=== PATIENT | female | born 1980 | race Caucasian/White ===

== ENCOUNTER 2019-02-11 18:56 | Emergency (ER) | payer MEDICARE, MEDICAID ==
[~2019-02-11] VITALS: Ht 170.2 cm; Wt 168.1 kg
[~2019-02-11 18:56] MED LIST: ASPI81TA52 PO; CELE-193 PO; Carvedilol PO; EPIN0.3P8 IM; GABA-530 PO; HYDR12.5 PO; NIT10P TD; NITR0.4T SL; PANT20TA2 PO; TRIA1TAB5 PO
[2019-02-11] MEDS ORDERED: nitroGLYCERIN 0.4mg SUBLingual tab SL PRN (19:15)
[2019-02-11] MEDS ORDERED: famotidine/PF 10 mg/ml inj IV ONE (19:15)
[2019-02-11 19:17] LABS: BASOPHILS # (AUTO) 0.1 X10'3 (0-0.2); BASOPHILS % (AUTO) 0.5 % (0-1); EOSINOPHILS # (AUTO) 0.3 X10'3 (0-0.9); EOSINOPHILS % (AUTO) 2.4 % (0-6); HEMATOCRIT 40.5 % (35.0-45.0); HEMOGLOBIN 13.4 g/dl (12.0-16.0); LYMPHOCYTES # (AUTO) 2.4 X10'3 (1.1-4.8); LYMPHOCYTES % (AUTO) 20.8 % (21-51); MEAN CORPUSCULAR HEMOGLOBIN 26.5 PG (27.0-31.0); MEAN CORPUSCULAR VOLUME 80.1 FL (78-98); MEAN PLATELET VOLUME 8.8 FL (7.4-10.4); MONOCYTES # (AUTO) 0.7 X10'3 (0-0.9); MONOCYTES % (AUTO) 6.1 % (2-12); NEUTROPHILS # (AUTO) 8.1 X10'3 (1.8-7.7); NEUTROPHILS % (AUTO) 70.2 % (42-75); PLATELET COUNT 318 X10'3 (140-440); RED BLOOD COUNT 5.05 X10'6 (4.20-5.60); RED CELL DISTRIBUTION WIDTH 14.6 % (11.5-14.5); WHITE BLOOD COUNT 11.5 X10'3 (4.5-11.0)
[2019-02-11 19:30] LABS: ALANINE AMINOTRANSFERASE 33 U/L (12-78); ALBUMIN 3.3 G/DL (3.4-5.0); ALBUMIN/GLOBULIN RATIO 0.9 (1.1-1.5); ALKALINE PHOSPHATASE 85 IU/L (46-116); ANION GAP 9 (8-16); ASPARTATE AMINO TRANSFERASE 20 U/L (10-37); BILIRUBIN,TOTAL 0.6 MG/DL (0.1-1.0); BLOOD UREA NITROGEN 15 MG/DL (7-18); BUN/CREATININE RATIO 17.2 (6.6-38.0); CALCIUM 8.8 MG/DL (8.5-10.1); CHLORIDE 106 MMOL/L (99-107); CREATININE 0.87 MG/DL (0.40-0.90); GLUCOSE 127 MG/DL (70-104); POTASSIUM 3.8 MMOL/L (3.5-5.1); SODIUM 140 MMOL/L (135-145); TOTAL CARBON DIOXIDE 25.3 MMOL/L (24-32); TOTAL PROTEIN 6.9 G/DL (6.4-8.2); eGFR 72 ML/MIN
[2019-02-11 19:43] LABS: D-DIMER 0.57 MG/L FEU (0-0.50); PARTIAL THROMBOPLASTIN TIME 26 SECONDS (22-32)
[2019-02-11] MEDS ORDERED: cloNIDine 0.1 mg tablet PO ONE (19:50)
[2019-02-11] MEDS ORDERED: morphine 4 MG/ML inj SYRINge IV ONE (20:00)
[2019-02-11] MEDS ORDERED: ondansetron/PF 4mg/2ml inj IV ONE (20:00)
[2019-02-11] MEDS ORDERED: iohexol 350MG/ML 100ml bottle IV ONE (20:06)
[2019-02-11] MEDS ORDERED: LORazepam 2 mg/ml vial IV ONE (21:35)
--- NOTE | 2019-02-11 21:44 | NUR ---
pt had been ordered ativan 1 mg iv prior to dc, anali hale rn talking with benjie brooks and provider decided to dc this med. pt to be dc'd
[2019-02-11 21:47] VITALS: BP 142/89
== END 2019-02-11 21:48 | disposition home or self-care (01) ==
LOC: ER 18:58
DX: R07.89 Other chest pain (principal); E66.01 Morbid (severe) obesity due to excess calories; I48.91 Unspecified atrial fibrillation; I25.10 Atherosclerotic heart disease of native coronary artery without angina pectoris; I10 Essential (primary) hypertension; I25.2 Old myocardial infarction; G89.29 Other chronic pain; Z86.73 Personal history of transient ischemic attack (TIA), and cerebral infarction without residual deficits; Z90.710 Acquired absence of both cervix and uterus; Z98.890 Other specified postprocedural states; Z88.8 Allergy status to other drugs, medicaments and biological substances; Z79.82 Long term (current) use of aspirin; Z79.899 Other long term (current) drug therapy
CPT/HCPCS: 36415; 71045; 71275; 80053; 83880; 84484; 85025; 85379; 85610; 85730; 93005; 96374; 96375; 99284; J2060; J2270; J2405; J3490; Q9967

== ENCOUNTER 2019-06-25 08:56 | Emergency (ER) | payer MEDICARE, MEDICAID ==
[~2019-06-25] VITALS: Ht 170.2 cm; Wt 172.5 kg
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
[2019-06-25 09:40] VITALS: BP 155/104
[2019-06-25] MEDS ORDERED: orphenadrine citrate 60mg/2ml inj. IM ONE (10:20)
[2019-06-25] MEDS ORDERED: ketorolac tromethamine 15mg/ml inj. IM ONE (10:20)
[2019-06-25] MEDS ORDERED: METH-360 PO (10:25)
== END 2019-06-25 11:25 | disposition home or self-care (01) ==
LOC: ER 08:57
DX: S16.1XXA Strain of muscle, fascia and tendon at neck level, initial encounter (principal); I48.91 Unspecified atrial fibrillation; I25.10 Atherosclerotic heart disease of native coronary artery without angina pectoris; I10 Essential (primary) hypertension; I25.2 Old myocardial infarction; G89.29 Other chronic pain; Z90.710 Acquired absence of both cervix and uterus; Z98.890 Other specified postprocedural states; Z88.0 Allergy status to penicillin; Z88.6 Allergy status to analgesic agent; Z88.8 Allergy status to other drugs, medicaments and biological substances; Z79.82 Long term (current) use of aspirin; Z79.899 Other long term (current) drug therapy; V49.49XA Driver injured in collision with other motor vehicles in traffic accident, initial encounter; Y93.89 Activity, other specified; Y92.488 Other paved roadways as the place of occurrence of the external cause; Y99.8 Other external cause status
CPT/HCPCS: 72040; 96372; 99283; J1885; J2360

== ENCOUNTER 2019-11-04 17:15 | Emergency (ER) | payer MEDICARE, MEDICAID ==
[~2019-11-04] VITALS: Ht 170.2 cm; Wt 177.3 kg
[~2019-11-04 17:15] MED LIST changes: +METH-360 PO; -NIT10P TD; +NITR1PAT68 TD
[2019-11-04 17:42] VITALS: BP 138/106
== END 2019-11-04 19:21 | disposition home or self-care (01) ==
LOC: ER 17:16
DX: S63.502A Unspecified sprain of left wrist, initial encounter (principal); I48.91 Unspecified atrial fibrillation; I25.10 Atherosclerotic heart disease of native coronary artery without angina pectoris; I10 Essential (primary) hypertension; I25.2 Old myocardial infarction; G89.29 Other chronic pain; Z98.890 Other specified postprocedural states; Z90.710 Acquired absence of both cervix and uterus; Z88.8 Allergy status to other drugs, medicaments and biological substances; Z86.73 Personal history of transient ischemic attack (TIA), and cerebral infarction without residual deficits; Z88.0 Allergy status to penicillin; Z88.6 Allergy status to analgesic agent; Z79.82 Long term (current) use of aspirin; Z79.899 Other long term (current) drug therapy; W07.XXXA Fall from chair, initial encounter; Y93.89 Activity, other specified; Y92.89 Other specified places as the place of occurrence of the external cause; Y99.9 Unspecified external cause status
CPT/HCPCS: 29280; 73090; 73200; 99284

== ENCOUNTER 2020-02-03 18:42 | Emergency (ER) | payer MEDICAID, MEDICARE ==
[~2020-02-03] VITALS: Ht 170.2 cm; Wt 178.0 kg
[2020-02-03] MEDS ORDERED: dexamethasone sod phosphate 10mg/ml inj IM STA (19:31)
[2020-02-03 20:34] VITALS: BP 142/56
== END 2020-02-03 20:30 | disposition home or self-care (01) ==
LOC: ER 18:43
DX: H93.13 Tinnitus, bilateral (principal); R59.1 Generalized enlarged lymph nodes; I48.91 Unspecified atrial fibrillation; I25.10 Atherosclerotic heart disease of native coronary artery without angina pectoris; I10 Essential (primary) hypertension; I25.2 Old myocardial infarction; G89.29 Other chronic pain; Z86.73 Personal history of transient ischemic attack (TIA), and cerebral infarction without residual deficits; Z90.710 Acquired absence of both cervix and uterus; Z90.89 Acquired absence of other organs; Z98.890 Other specified postprocedural states; Z88.0 Allergy status to penicillin; Z88.8 Allergy status to other drugs, medicaments and biological substances; Z79.82 Long term (current) use of aspirin; Z79.899 Other long term (current) drug therapy
CPT/HCPCS: 96372; 99283; J1100

== ENCOUNTER 2020-02-09 14:46 | Emergency (ER) | payer MEDICARE ==
[~2020-02-09] VITALS: Ht 170.2 cm; Wt 182.8 kg
--- NOTE | 2020-02-09 16:11 | NUR ---
pt has had ear pain x 12 day was seen here and at the clinic her dr ordaz told her if is does not get better to go to the er it has not gotten better so she is here her office is wanting her to get a mri r/t the ongoing pain
[2020-02-09] MEDS ORDERED: HYDROcodone/acetaminophen 5mg/325mg tablet PO ONE (16:40)
[2020-02-09 17:14] LABS: BASOPHILS # (AUTO) 0.1 X10'3 (0-0.2); BASOPHILS % (AUTO) 1.3 % (0-1); EOSINOPHILS # (AUTO) 0.4 X10'3 (0-0.9); EOSINOPHILS % (AUTO) 4.4 % (0-6); HEMATOCRIT 41.8 % (35.0-45.0); HEMOGLOBIN 13.5 g/dl (12.0-16.0); LYMPHOCYTES # (AUTO) 1.7 X10'3 (1.1-4.8); LYMPHOCYTES % (AUTO) 20.8 % (21-51); MEAN CORPUSCULAR HEMOGLOBIN 26.6 PG (27.0-31.0); MEAN CORPUSCULAR HGB CONC 32.4 g/dL (33.0-36.5); MEAN CORPUSCULAR VOLUME 82.2 FL (78-98); MEAN PLATELET VOLUME 8.7 FL (7.4-10.4); MONOCYTES # (AUTO) 0.5 X10'3 (0-0.9); NEUTROPHILS # (AUTO) 5.5 X10'3 (1.8-7.7); NEUTROPHILS % (AUTO) 67.5 % (42-75); PLATELET COUNT 315 X10'3 (140-440); RED BLOOD COUNT 5.09 X10'6 (4.20-5.60); RED CELL DISTRIBUTION WIDTH 15.1 % (11.5-14.5); WHITE BLOOD COUNT 8.2 X10'3 (4.5-11.0)
[2020-02-09] MEDS ORDERED: iohexol 300mg/ml 100ml inj. ONE (17:25)
[2020-02-09 17:26] LABS: ALANINE AMINOTRANSFERASE 43 U/L (12-78); ALBUMIN 3.3 G/DL (3.4-5.0); ALBUMIN/GLOBULIN RATIO 0.9 (1.1-1.5); ALKALINE PHOSPHATASE 77 IU/L (46-116); ANION GAP 3 (8-16); ASPARTATE AMINO TRANSFERASE 19 U/L (10-37); BILIRUBIN,TOTAL 0.6 MG/DL (0.1-1.0); BLOOD UREA NITROGEN 14 MG/DL (7-18); BUN/CREATININE RATIO 15.7 (6.6-38.0); CALCIUM 8.6 MG/DL (8.5-10.1); CHLORIDE 106 MMOL/L (99-107); CREATININE 0.89 MG/DL (0.40-0.90); GLUCOSE 96 MG/DL (70-104); POTASSIUM 3.8 MMOL/L (3.5-5.1); SODIUM 140 MMOL/L (135-145); TOTAL CARBON DIOXIDE 31.5 MMOL/L (24-32); TOTAL PROTEIN 6.8 G/DL (6.4-8.2); eGFR 70 ML/MIN
[2020-02-09] MEDS ORDERED: carBAMazepine Ext. Release 200 MG TAB.ER.12H PO STA (18:36)
[2020-02-09 19:38] VITALS: BP 171/98
== END 2020-02-09 19:41 | disposition home or self-care (01) ==
LOC: ER 14:47
DX: H93.11 Tinnitus, right ear (principal); H93.8X1 Other specified disorders of right ear; I48.91 Unspecified atrial fibrillation; I25.10 Atherosclerotic heart disease of native coronary artery without angina pectoris; I10 Essential (primary) hypertension; I25.2 Old myocardial infarction; G89.29 Other chronic pain; Z90.710 Acquired absence of both cervix and uterus; Z98.890 Other specified postprocedural states; Z86.73 Personal history of transient ischemic attack (TIA), and cerebral infarction without residual deficits; Z88.8 Allergy status to other drugs, medicaments and biological substances; Z79.82 Long term (current) use of aspirin; Z79.899 Other long term (current) drug therapy; Z88.0 Allergy status to penicillin
CPT/HCPCS: 36415; 70482; 80053; 84145; 85025; 99285; Q9967

== ENCOUNTER 2020-03-28 15:26 | Emergency (ER) | payer MEDICARE ==
[~2020-03-28] VITALS: Ht 170.2 cm; Wt 178.5 kg
[2020-03-28 15:30] VITALS: BP 159/111
[2020-03-28] MEDS ORDERED: TETRACAINE 0.5% 4 ML OPHTHALMIC DROPS LEFTEYE ONE (15:50)
[2020-03-28] MEDS ORDERED: proparacaine 0.5% ophthalmic drops 15ml LEFTEYE ONE ×3 (15:55)
[2020-03-28] MEDS ORDERED: CIPR2.5D18 RIGHTEYE (16:41)
[2020-03-28] MEDS ORDERED: HYDR-4383 PO (16:41)
--- NOTE | 2020-03-28 17:15 | NUR ---
IRRIGATED RT EYE WITH 200ML OF NS, PT CESIA WELL, UNABLE TO VISUALIZE CONTACT LENSE, PT SAID SHE FEELS IT IN THERE, Alber DODGE AWARE AND WILL EVALUATE PT
== END 2020-03-28 18:54 | disposition home or self-care (01) ==
LOC: ER 15:27
DX: H10.31 Unspecified acute conjunctivitis, right eye (principal); I48.91 Unspecified atrial fibrillation; I25.10 Atherosclerotic heart disease of native coronary artery without angina pectoris; I10 Essential (primary) hypertension; I25.2 Old myocardial infarction; G89.29 Other chronic pain; Z90.89 Acquired absence of other organs; Z90.710 Acquired absence of both cervix and uterus; Z98.890 Other specified postprocedural states; Z88.0 Allergy status to penicillin; Z88.8 Allergy status to other drugs, medicaments and biological substances; Z79.82 Long term (current) use of aspirin; Z79.899 Other long term (current) drug therapy
CPT/HCPCS: 99283

== ENCOUNTER 2022-04-18 13:46 | Emergency (ER) | payer MEDICARE, MEDICAID ==
[~2022-04-18] VITALS: Ht 170.2 cm; Wt 165.4 kg
[~2022-04-18 13:46] MED LIST changes: +HYDR-4383 PO
[2022-04-18 14:39] LABS: BASOPHILS % (AUTO) 0.5 % (0-1); EOSINOPHILS # (AUTO) 0.4 X10'3 (0-0.9); EOSINOPHILS % (AUTO) 4.3 % (0-6); HEMATOCRIT 45.1 % (35.0-45.0); HEMOGLOBIN 14.6 g/dl (12.0-16.0); LYMPHOCYTES # (AUTO) 1.9 X10'3 (1.1-4.8); LYMPHOCYTES % (AUTO) 20.5 % (21-51); MEAN CORPUSCULAR HEMOGLOBIN 26.1 PG (27.0-31.0); MEAN CORPUSCULAR HGB CONC 32.4 g/dL (33.0-36.5); MEAN CORPUSCULAR VOLUME 80.7 FL (78-98); MEAN PLATELET VOLUME 8.6 FL (7.4-10.4); MONOCYTES # (AUTO) 0.6 X10'3 (0-0.9); NEUTROPHILS # (AUTO) 6.4 X10'3 (1.8-7.7); NEUTROPHILS % (AUTO) 68.7 % (42-75); PLATELET COUNT 352 X10'3 (140-440); RED BLOOD COUNT 5.59 X10'6 (4.20-5.60); RED CELL DISTRIBUTION WIDTH 15.1 % (11.5-14.5); WHITE BLOOD COUNT 9.4 X10'3 (4.5-11.0)
[2022-04-18 14:52] LABS: ALANINE AMINOTRANSFERASE 42 U/L (12-78); ALBUMIN/GLOBULIN RATIO 1.2 (1.1-1.5); ALKALINE PHOSPHATASE 69 IU/L (46-116); ANION GAP 9 (8-16); ASPARTATE AMINO TRANSFERASE 21 U/L (10-37); BILIRUBIN,TOTAL 0.6 MG/DL (0.1-1.0); BLOOD UREA NITROGEN 13 MG/DL (7-18); BUN/CREATININE RATIO 15.7 (6.6-38.0); CALCIUM 9.4 MG/DL (8.5-10.1); CHLORIDE 105 MMOL/L (99-107); CREATININE 0.83 MG/DL (0.40-0.90); GLUCOSE 96 MG/DL (70-104); POTASSIUM 3.6 MMOL/L (3.5-5.1); SODIUM 143 MMOL/L (135-145); TOTAL CARBON DIOXIDE 29.2 MMOL/L (24-32); TOTAL PROTEIN 7.4 G/DL (6.4-8.2); eGFR 75 ML/MIN
[2022-04-18] MEDS ORDERED: ketorolac trometh. 30mg/ml inj. IM ONE (16:15)
[2022-04-18] MEDS ORDERED: cloNIDine 0.1 mg tablet PO ONE (16:15)
--- NOTE | 2022-04-18 16:34 | NUR ---
To CT via gurney by [employer].
[2022-04-18 17:46] VITALS: BP 126/77
[2022-04-18 17:58] LABS: D-DIMER 0.33 MG/L FEU (0-0.50)
--- NOTE | 2022-04-18 17:58 | NUR ---
Pt given and understands d/c instructions. Ambulatory with a steady gait.
== END 2022-04-18 17:55 | disposition home or self-care (01) ==
LOC: ER 13:46
DX: R07.89 Other chest pain (principal); R51.9 Headache, unspecified; R06.02 Shortness of breath; R42 Dizziness and giddiness; I48.91 Unspecified atrial fibrillation; I25.10 Atherosclerotic heart disease of native coronary artery without angina pectoris; I10 Essential (primary) hypertension; I25.2 Old myocardial infarction; G89.29 Other chronic pain; Z87.410 Personal history of cervical dysplasia; Z86.73 Personal history of transient ischemic attack (TIA), and cerebral infarction without residual deficits; Z88.8 Allergy status to other drugs, medicaments and biological substances; Z88.0 Allergy status to penicillin; Z79.82 Long term (current) use of aspirin; Z79.899 Other long term (current) drug therapy
CPT/HCPCS: 36415; 70450; 71045; 80053; 83880; 84484; 85025; 85379; 93005; 96372; 99285; J1885

== ENCOUNTER 2022-05-03 12:04 | Day surgery (SDC) | payer MEDICARE, MEDICAID ==
[2022-04-29 12:28] LABS: BASOPHILS % (AUTO) 0.6 % (0-1); EOSINOPHILS # (AUTO) 0.3 X10'3 (0-0.9); EOSINOPHILS % (AUTO) 4.3 % (0-6); HEMOGLOBIN 14.3 g/dl (12.0-16.0); LYMPHOCYTES # (AUTO) 1.5 X10'3 (1.1-4.8); LYMPHOCYTES % (AUTO) 20.1 % (21-51); MEAN CORPUSCULAR HEMOGLOBIN 26.7 PG (27.0-31.0); MEAN CORPUSCULAR HGB CONC 33.2 g/dL (33.0-36.5); MEAN CORPUSCULAR VOLUME 80.3 FL (78-98); MEAN PLATELET VOLUME 8.6 FL (7.4-10.4); MONOCYTES # (AUTO) 0.5 X10'3 (0-0.9); MONOCYTES % (AUTO) 6.1 % (2-12); NEUTROPHILS # (AUTO) 5.2 X10'3 (1.8-7.7); NEUTROPHILS % (AUTO) 68.9 % (42-75); PLATELET COUNT 339 X10'3 (140-440); RED BLOOD COUNT 5.36 X10'6 (4.20-5.60); RED CELL DISTRIBUTION WIDTH 15.2 % (11.5-14.5); WHITE BLOOD COUNT 7.6 X10'3 (4.5-11.0)
[2022-04-29 12:41] LABS: APTT 25 SECONDS (22-32)
[2022-04-29 12:46] LABS: ALBUMIN 3.9 G/DL (3.4-5.0); ANION GAP 10 (8-16); BLOOD UREA NITROGEN 15 MG/DL (7-18); CALCIUM 9.1 MG/DL (8.5-10.1); CHLORIDE 106 MMOL/L (99-107); CHOL/HDL RATIO 3.9 (0.00-4.99); CHOLESTEROL 187 MG/DL (0-200); CREATININE 0.88 MG/DL (0.40-0.90); GLUCOSE 105 MG/DL (70-104); HDL CHOLESTEROL 48 MG/DL (35-60); LDL CHOLESTEROL 113 MG/DL (50-100); POTASSIUM 3.8 MMOL/L (3.5-5.1); SODIUM 145 MMOL/L (135-145); TOTAL CARBON DIOXIDE 29.2 MMOL/L (24-32); TRIGLYCERIDES 129 MG/DL (20-135); eGFR 70 ML/MIN
[~2022-05-03] VITALS: Ht 170.2 cm; Wt 163.9 kg
[2022-05-03] VITALS (8 sets, daily range): BP systolic 144–176; BP diastolic 56–117
[2022-05-03] MEDS ORDERED: normal saline 1,000 ML IV SCH (12:25)
[2022-05-03] MEDS ORDERED: diphenhydrAMINE 25mg capsule PO PRN (12:25)
[2022-05-03] MEDS ORDERED: LORazepam 0.5 MG tablet PO PRN (12:25)
[2022-05-03] MEDS ORDERED: AMLO-708 PO (13:06)
[2022-05-03] MEDS ORDERED: ALLEVE PO (13:06)
[2022-05-03] MEDS ORDERED: LAMO200T10 PO (13:06)
[2022-05-03] MEDS ORDERED: verapamil 2.5 mg/ml inj IV ONE (14:54)
[2022-05-03] MEDS ORDERED: midazolam 1 mg/ML 2ml injection ONE ×2 (14:55→15:54)
[2022-05-03] MEDS ORDERED: nitroGLYCERIN-Tridil 50MG/D5W 250 ML IV ONE (14:55)
[2022-05-03] MEDS ORDERED: fentaNYL/PF 50MCG/1 ML 2ML syringe ONE ×2 (14:55→15:54)
[2022-05-03] MEDS ORDERED: iohexol 350MG/ML 100ml bottle IV ONE ×2 (14:55→16:05)
[2022-05-03] MEDS ORDERED: heparin 1,000unit/ml 10ml vial 10 ML ONE (14:55)
[2022-05-03] MEDS ORDERED: LIDOcaine 1%/PF 5ML 10 MG/ML VIAL ONE (14:56)
--- NOTE | 2022-05-03 16:47 | NUR ---
Patient returned to room s/p heart cath. Bedside report received from SRI Holland. Vital signs stable. Vasc band in place to right radial. Pulse/sensation intact.
[2022-05-03] MEDS ORDERED: HYDROcodone/acetaminophen 10/325mg tab PO PRN (17:05)
[2022-05-03] MEDS ORDERED: HYDROcodone/acetaminophen 5mg/325mg tablet PO PRN (17:05)
== END 2022-05-03 18:35 | disposition home or self-care (01) ==
LOC: SSTAY O 12:04
PROVIDERS: ATTEND Student in an Organized Health Care Education/Training Program
DX: R07.9 Chest pain, unspecified (principal); I10 Essential (primary) hypertension; G47.33 Obstructive sleep apnea (adult) (pediatric); I25.2 Old myocardial infarction; M19.90 Unspecified osteoarthritis, unspecified site; G43.909 Migraine, unspecified, not intractable, without status migrainosus; Z88.0 Allergy status to penicillin; Z88.8 Allergy status to other drugs, medicaments and biological substances; Z79.899 Other long term (current) drug therapy; Z98.890 Other specified postprocedural states
CPT/HCPCS: 36415; 80048; 80061; 85025; 85610; 85730; 93005; 93458; 93567; 99152; 99153; A6258; C1769; C1894; J1644; J2250; J3010; J3490; J7030; Q0163; Q9967; A4620; A5120; A6402

== ENCOUNTER 2022-07-05 05:45 | Day surgery (SDC) | payer MEDICARE, MEDICAID ==
[2022-06-29 16:17] LABS: BASOPHILS # (AUTO) 0.1 X10'3 (0-0.2); BASOPHILS % (AUTO) 0.9 % (0-1); EOSINOPHILS # (AUTO) 0.3 X10'3 (0-0.9); EOSINOPHILS % (AUTO) 3.9 % (0-6); LYMPHOCYTES # (AUTO) 1.7 X10'3 (1.1-4.8); LYMPHOCYTES % (AUTO) 20.9 % (21-51); MEAN CORPUSCULAR HEMOGLOBIN 26.8 PG (27.0-31.0); MEAN CORPUSCULAR HGB CONC 32.5 g/dL (33.0-36.5); MEAN CORPUSCULAR VOLUME 82.3 FL (78-98); MEAN PLATELET VOLUME 8.9 FL (7.4-10.4); MONOCYTES # (AUTO) 0.5 X10'3 (0-0.9); NEUTROPHILS # (AUTO) 5.6 X10'3 (1.8-7.7); NEUTROPHILS % (AUTO) 68.3 % (42-75); PRE OP HEMATOCRIT 43.3 % (35.0-45.0); PRE OP HEMOGLOBIN 14.1 g/dL (12.0-16.0); PRE OP PLATELET COUNT 362 X10'3 (140-440); RED BLOOD COUNT 5.26 X10'6 (4.20-5.60); RED CELL DISTRIBUTION WIDTH 14.1 % (11.5-14.5)
[2022-06-29 16:25] LABS: ALBUMIN 3.8 G/DL (3.4-5.0); ALBUMIN/GLOBULIN RATIO 1.2 (1.1-1.5); ALKALINE PHOSPHATASE 74 IU/L (46-116); BLOOD UREA NITROGEN 15 MG/DL (7-18); BUN/CREATININE RATIO 16.7 (6.6-38.0); CALCIUM 9.2 MG/DL (8.5-10.1); CHLORIDE 105 MMOL/L (99-107); PRE OP ALT 30 U/L (30-65); PRE OP ANION GAP 8 (8-16); PRE OP AST 13 U/L (10-37); PRE OP BILIRUB, TOTAL 0.4 MG/DL (0.0-1.0); PRE OP GLUCOSE 104 MG/DL (70-104); PRE OP POTASSIUM 3.6 MMOL/L (3.4-5.1); PRE OP SODIUM 142 MMOL/L (135-145); TOTAL CARBON DIOXIDE 29.4 MMOL/L (24-32); TOTAL PROTEIN 7.1 G/DL (6.4-8.2); eGFR 68 ML/MIN
[~2022-07-05] VITALS: Ht 170.2 cm; Wt 161.4 kg
[2022-07-05] VITALS (28 sets, daily range): BP systolic 133–170; BP diastolic 75–98
[~2022-07-05 05:45] MED LIST changes: +AMLO-708 PO; +ASPI-147 PO; -ASPI81TA52 PO; +CALC-336 PO; -CELE-193 PO; -Carvedilol PO; -EPIN0.3P8 IM; -GABA-530 PO; -HYDR-4383 PO; -HYDR12.5 PO; +LAMO200T2 PO; +MAGN400C PO; -METH-360 PO; +NAPR220T67 PO; -NITR0.4T SL; -NITR1PAT68 TD; -PANT20TA2 PO; +famotidine 20mg tablet PO ONE; +ringers solution, lacted 1,000 ML IV SCH
[2022-07-05] MEDS ORDERED: gabapentin 300mg capsule PO ONE (06:20)
[2022-07-05] MEDS ORDERED: celeCOXIB 100mg capsule PO ONE (06:20)
[2022-07-05] MEDS ORDERED: vancomycin inj 1,750 MG in normal saline 500ml IV soln 350 ML IV ONE ×5 (06:20→18:30)
[2022-07-05] MEDS ORDERED: oxyCODONE SR 10mg (sust. release) tab PO ONE (06:20)
[2022-07-05] MEDS ORDERED: ceFAZolin inj. 3,000 MG in normal saline 100ml IV soln 100 ML IV ONE (06:20)
[2022-07-05] MEDS ORDERED: metoclopramide 5 mg/ml inj IV ONE (06:20)
[2022-07-05] MEDS ORDERED: acetaminophen 1,000mg/100ml IV 100 ML IV ONE (06:20)
[2022-07-05] MEDS ORDERED: acetaminophen 325mg tablet PO PRN (06:30)
[2022-07-05] MEDS ORDERED: potassium cl 20mEq in 1/2 NS 1,000 ML IV SCH (06:30)
[2022-07-05] MEDS ORDERED: ondansetron/PF 4mg/2ml inj IV PRN ×2 (06:30→08:05)
[2022-07-05] MEDS ORDERED: HYDROmorphone inj. 0.5 MG/0.5 ML DISP.SYRIN IV PRN (06:30)
[2022-07-05] MEDS ORDERED: HYDROcodone/acetaminophen 10/325mg tab PO PRN (06:30)
[2022-07-05] MEDS ORDERED: bisacodyl 10mg suppository rectal RC PRN (06:30)
[2022-07-05] MEDS ORDERED: diphenhydrAMINE 25mg capsule PO PRN ×2 (06:30)
[2022-07-05] MEDS ORDERED: magnesium hydroxide 30ml (MOM) UD suspension PO PRN (06:30)
[2022-07-05] MEDS ORDERED: naloxone 0.4 mg/ml inj IV PRN (06:30)
[2022-07-05] MEDS ORDERED: ketorolac trometh. 30mg/ml inj. ONE (06:53)
[2022-07-05] MEDS ORDERED: epiNEPHrine 1 mg/ml inj ONE (06:53)
[2022-07-05] MEDS ORDERED: vancomycin 1,000mg inj ONE (06:53)
[2022-07-05] MEDS ORDERED: cloNIDine hcl/PF 100mcg/ml inj ONE (06:53)
[2022-07-05] MEDS ORDERED: ROPIVAcaine 0.5% (5mg/ml) 30ml vial ONE ×2 (06:53→06:54)
[2022-07-05] MEDS ORDERED: MIDAZolam 1 MG/ML 5ML VIAL ONE (07:19)
[2022-07-05] MEDS ORDERED: fentaNYL/PF 50MCG/1 ML 2ML syringe ONE ×2 (07:19→07:51)
[2022-07-05] MEDS ORDERED: sevoflurane 250ml liquid IH ONE (07:25)
[2022-07-05] MEDS ORDERED: acetaminophen 1000 MG/100ml vial IV ONE (07:25)
[2022-07-05] MEDS ORDERED: diphenhydrAMINE 50 mg/ml inj ONE (07:25)
[2022-07-05] MEDS ORDERED: LAMOTRIGINE PO SCH (08:00)
[2022-07-05] MEDS ORDERED: non-formulary drug (Amlodipine Besylate 1 TAB) PO SCH (08:00)
[2022-07-05] MEDS ORDERED: gabapentin 300mg capsule PO SCH (08:00)
[2022-07-05] MEDS ORDERED: multivitamins, therapeutics tablet PO SCH (08:00)
[2022-07-05] MEDS ORDERED: ceFAZolin/D5W- 1GM premix 50 ML IV SCH ×2 (08:00→16:00)
[2022-07-05] MEDS ORDERED: non-formulary drug (Magnesium Oxide (Magnesium) 1 CAP) PO SCH (08:00)
[2022-07-05] MEDS ORDERED: ascorbic acid 500mg tablet PO SCH (08:00)
[2022-07-05] MEDS ORDERED: ringers solution, lacted 1,000 ML IV SCH (08:05)
[2022-07-05] MEDS ORDERED: morphine 2 MG/ML inj. syringe IV PRN (08:05)
[2022-07-05] MEDS ORDERED: ROPIVAcaine 0.2% (10 MG/5 ML) BOLUS INJECTION ADDCANAL PRN (08:05)
[2022-07-05] MEDS ORDERED: meperidine/PF 25mg/ml syringe IV PRN ×3 (08:05)
[2022-07-05] MEDS ORDERED: proCHLORperazine 10 MG/2 ml inj IV PRN (08:05)
[2022-07-05] MEDS ORDERED: tranexamic acid inj. 1,000 MG in normal saline 100ml IV soln 90 ML IV ONE (08:10)
[2022-07-05] MEDS ORDERED: aspirin 325mg tablet PO SCH (08:30)
[2022-07-05] MEDS ORDERED: propofol inj 20 ML IV ONE (08:53)
--- NOTE | 2022-07-05 09:22 | NUR ---
Received from OR via BED, accompanied by Anesthesiologist and report given by JERMAIN Anesthesiologist. PATIENT WAKING UP, DENIES PAIN, V/S WNL, SCD ON, 20G TO RIGHT WRIST, NEIDA DRESSING to RIGHT KNEE C/D/I with POWDER PACK. ON-Q CATHETER NOTED WITH C/D/I AND WILL START ROPIVACAINE DRIP AT 2 CC/HR. Addendum: 07/05/22 at 0954 by Chepe Price RN Amended: Links added.
[2022-07-05] MEDS ORDERED: ROPIVAcaine 0.2%/PF PUMP/bolus 545 ML POPLITEAL SCH (09:40)
[2022-07-05] MEDS ORDERED: dexamethasone sod phosphate 4mg/ml inj. ONE (10:06)
[2022-07-05] MEDS ORDERED: meperidine/PF 25mg/ml syringe ONE (10:06)
[2022-07-05] MEDS ORDERED: ondansetron/PF 4mg/2ml inj ONE (10:06)
[2022-07-05] MEDS: morphine 4 MG/ML inj SYRINge IV PRN ×2 (10:09→11:31)
--- NOTE | 2022-07-05 12:01 | NUR ---
received report from SRI Mo. awaiting patient arrival.
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
[2022-07-05] MEDS: potassium cl 20mEq in 1/2 NS 1,000 ML IV SCH ×2 (12:22→15:00)
[2022-07-05] MEDS ORDERED: tranexamic acid inj. 1,600 MG in normal saline 100ml IV soln 84 ML IV ONE (12:30)
[2022-07-05] MEDS: HYDROmorphone 1 mg/ml syringe IV PRN ×3 (13:44→22:49)
--- NOTE | 2022-07-05 13:45 | NUR ---
patient woke up in pain. increased BP. SBP down to 133 after dilaudid was given.
[2022-07-05] MEDS: ROPIVAcaine 0.2%/PF PUMP/bolus 545 ML ADDCANAL SCH (14:33)
[2022-07-05] MEDS ORDERED: cefazolin/dext.iso 2gm/100ml 100 ML IV SCH (16:00)
[2022-07-05] MEDS: HYDROcodone/acetaminophen 10/325mg tab PO PRN ×2 (16:22→20:50)
[2022-07-05] MEDS: ceFAZolin inj. 3,000 MG in normal saline 100ml IV soln 100 ML IV SCH (16:33)
[2022-07-05] MEDS ORDERED: triamterene/HCTZ 37.5/25mg tablet PO ONE (17:05)
--- NOTE | 2022-07-05 18:20 | NUR ---
Problems reprioritized. Patient report given, questions answered & plan of care reviewed with SRI Rousseau.
[2022-07-05] MEDS: ascorbic acid 500mg tablet PO SCH (20:49)
[2022-07-05] MEDS: sennosides 8.6mg tablet PO SCH (20:49)
[2022-07-05] MEDS: gabapentin 300mg capsule PO SCH (20:49)
[2022-07-05] MEDS ORDERED: sennosides 8.6mg tablet PO SCH (21:00)
[2022-07-06] MEDS: ceFAZolin inj. 3,000 MG in normal saline 100ml IV soln 100 ML IV SCH (00:51)
[2022-07-06] MEDS: HYDROcodone/acetaminophen 10/325mg tab PO PRN ×5 (00:57→22:36)
[2022-07-06] MEDS: potassium cl 20mEq in 1/2 NS 1,000 ML IV SCH ×4 (01:11→23:00)
[2022-07-06 02:00] VITALS: BP 140/85
[2022-07-06] MEDS: HYDROmorphone 1 mg/ml syringe IV PRN ×4 (04:34→19:43)
[2022-07-06 06:20] LABS: BASOPHILS # (AUTO) 0.1 X10'3 (0-0.2); BASOPHILS % (AUTO) 0.5 % (0-1); EOSINOPHILS % (AUTO) 0.1 % (0-6); HEMATOCRIT 37.4 % (35.0-45.0); HEMOGLOBIN 12.2 g/dl (12.0-16.0); LYMPHOCYTES # (AUTO) 1.4 X10'3 (1.1-4.8); LYMPHOCYTES % (AUTO) 9.9 % (21-51); MEAN CORPUSCULAR HEMOGLOBIN 26.8 PG (27.0-31.0); MEAN CORPUSCULAR HGB CONC 32.6 g/dL (33.0-36.5); MEAN CORPUSCULAR VOLUME 82.2 FL (78-98); MEAN PLATELET VOLUME 8.9 FL (7.4-10.4); MONOCYTES # (AUTO) 0.9 X10'3 (0-0.9); MONOCYTES % (AUTO) 6.4 % (2-12); NEUTROPHILS % (AUTO) 83.1 % (42-75); PLATELET COUNT 367 X10'3 (140-440); RED BLOOD COUNT 4.55 X10'6 (4.20-5.60); RED CELL DISTRIBUTION WIDTH 14.3 % (11.5-14.5); WHITE BLOOD COUNT 14.4 X10'3 (4.5-11.0)
[2022-07-06 06:30] VITALS: BP 133/88
[2022-07-06 06:39] LABS: ANION GAP 7 (8-16); CHLORIDE 104 MMOL/L (99-107); POTASSIUM 3.8 MMOL/L (3.5-5.1); SODIUM 140 MMOL/L (135-145); TOTAL CARBON DIOXIDE 29.1 MMOL/L (24-32)
[2022-07-06] MEDS: triamterene/HCTZ 37.5/25mg tablet PO SCH (07:09)
[2022-07-06] MEDS: ascorbic acid 500mg tablet PO SCH ×2 (07:09→20:16)
[2022-07-06] MEDS: lamoTRIgine 100mg tablet PO SCH (07:10)
[2022-07-06] MEDS: magnesium oxide 400mg tablet PO SCH (07:10)
[2022-07-06] MEDS: gabapentin 300mg capsule PO SCH ×3 (07:10→20:16)
[2022-07-06] MEDS: multivitamins, therapeutics tablet PO SCH (07:10)
[2022-07-06] MEDS: amLODIPine 5mg tablet PO SCH (07:11)
[2022-07-06] MEDS: aspirin 325mg tablet PO SCH (07:11)
[2022-07-06 11:30] VITALS: BP 169/98
--- NOTE | 2022-07-06 13:49 | NUR ---
Joint surgery consult: Pt s/p R TKA this admit per EMR. Pt seen by DONN for written/verbal high protein diet ed w/ RD contact information provided. Pt reports drinks premier protein BID at home. RD encouraged pt to contact dietitian's office if further questions/concerns. Addendum: 07/06/22 at [address] Amended: Links added.
--- NOTE | 2022-07-06 18:02 | NUR ---
patient c/o severe pain. despite pain medication. she is requesting that onQ be removed. I removed it without incident, cannula intact. no complaints. area clean and dry.
--- NOTE | 2022-07-06 18:10 | NUR ---
Patient in room [facility]. I have received report from Srinivasan FIERRO and had the opportunity to ask questions and assume patient care. Addendum: 07/07/22 at 0556 by Muriel Pearson LVN Patient in room [facility]. I have received report from Mariia FIERRO and had the opportunity to ask questions and assume patient care.
--- NOTE | 2022-07-06 18:26 | NUR ---
Problems reprioritized. Patient report given, questions answered & plan of care reviewed with SRI Llamas.
--- NOTE | 2022-07-06 18:51 | NUR ---
t/c to Dr. Donato regarding patients concerns of pain. No new orders.
[2022-07-06] MEDS: sennosides 8.6mg tablet PO SCH (20:17)
[2022-07-06] MEDS: celeCOXIB 100mg capsule PO SCH (20:17)
[2022-07-06 22:00] VITALS: BP 138/84
[2022-07-07] MEDS: HYDROmorphone 1 mg/ml syringe IV PRN ×2 (00:53→05:32)
[2022-07-07] MEDS: HYDROcodone/acetaminophen 10/325mg tab PO PRN (02:41)
--- NOTE | 2022-07-07 05:57 | NUR ---
reviewed resin maker assessment and in agreement.
[2022-07-07 06:00] VITALS: BP 155/91
[2022-07-07 06:11] LABS: BASOPHILS % (AUTO) 0.3 % (0-1); EOSINOPHILS # (AUTO) 0.2 X10'3 (0-0.9); EOSINOPHILS % (AUTO) 2.1 % (0-6); HEMATOCRIT 36.8 % (35.0-45.0); LYMPHOCYTES # (AUTO) 2.4 X10'3 (1.1-4.8); LYMPHOCYTES % (AUTO) 21.9 % (21-51); MEAN CORPUSCULAR HEMOGLOBIN 27.2 PG (27.0-31.0); MEAN CORPUSCULAR HGB CONC 32.7 g/dL (33.0-36.5); MEAN PLATELET VOLUME 8.7 FL (7.4-10.4); MONOCYTES # (AUTO) 0.8 X10'3 (0-0.9); MONOCYTES % (AUTO) 7.9 % (2-12); NEUTROPHILS # (AUTO) 7.3 X10'3 (1.8-7.7); NEUTROPHILS % (AUTO) 67.8 % (42-75); PLATELET COUNT 327 X10'3 (140-440); RED BLOOD COUNT 4.43 X10'6 (4.20-5.60); RED CELL DISTRIBUTION WIDTH 14.1 % (11.5-14.5); WHITE BLOOD COUNT 10.8 X10'3 (4.5-11.0)
--- NOTE | 2022-07-07 06:28 | NUR ---
Problems reprioritized. Patient report given, questions answered & plan of care reviewed with Shila FIERRO.
[2022-07-07] MEDS: lamoTRIgine 100mg tablet PO SCH (07:07)
[2022-07-07] MEDS: triamterene/HCTZ 37.5/25mg tablet PO SCH (07:10)
[2022-07-07] MEDS: magnesium oxide 400mg tablet PO SCH (07:10)
[2022-07-07] MEDS: multivitamins, therapeutics tablet PO SCH (07:10)
[2022-07-07] MEDS: amLODIPine 5mg tablet PO SCH (07:13)
[2022-07-07] MEDS: gabapentin 300mg capsule PO SCH ×3 (07:13→20:18)
[2022-07-07] MEDS: oxyCODONE/APAP 10/325mg tablet PO PRN ×4 (07:16→21:50)
[2022-07-07] MEDS: celeCOXIB 100mg capsule PO SCH ×2 (08:00→20:00)
[2022-07-07] MEDS: ascorbic acid 500mg tablet PO SCH ×2 (08:00→20:18)
[2022-07-07] MEDS: aspirin 325mg tablet PO SCH (09:30)
[2022-07-07 10:00] VITALS: BP 161/91
[2022-07-07] MEDS: ROPIVAcaine 0.2%/PF PUMP/bolus 545 ML ADDCANAL SCH (14:33)
--- NOTE | 2022-07-07 15:03 | NUR ---
0632 jay assessment, pt c/o pain appears comfortably in bed
[2022-07-07 18:00] VITALS: BP 154/92
--- NOTE | 2022-07-07 18:37 | NUR ---
Patient in room [facility]. I have received report from ALEXANDRA FIERRO/ NICOLAS FIERRO and had the opportunity to ask questions and assume patient care. Addendum: 07/07/22 at 1838 by Jackie Lewis RN RECEIVED REPORT FROM PETR FIERRO.
[2022-07-07] MEDS: sennosides 8.6mg tablet PO SCH (20:18)
[2022-07-07 22:00] VITALS: BP 151/91
[2022-07-08] MEDS: oxyCODONE/APAP 10/325mg tablet PO PRN ×2 (05:29→11:16)
[2022-07-08 06:00] VITALS: BP 144/76
[2022-07-08 06:01] VITALS: BP 133/71
[2022-07-08 06:08] LABS: BASOPHILS # (AUTO) 0.1 X10'3 (0-0.2); BASOPHILS % (AUTO) 0.8 % (0-1); EOSINOPHILS # (AUTO) 0.5 X10'3 (0-0.9); EOSINOPHILS % (AUTO) 4.5 % (0-6); HEMATOCRIT 38.9 % (35.0-45.0); HEMOGLOBIN 12.7 g/dl (12.0-16.0); LYMPHOCYTES # (AUTO) 2.5 X10'3 (1.1-4.8); LYMPHOCYTES % (AUTO) 22.9 % (21-51); MEAN CORPUSCULAR HEMOGLOBIN 27.1 PG (27.0-31.0); MEAN CORPUSCULAR HGB CONC 32.6 g/dL (33.0-36.5); MEAN CORPUSCULAR VOLUME 83.1 FL (78-98); MEAN PLATELET VOLUME 8.5 FL (7.4-10.4); MONOCYTES # (AUTO) 0.7 X10'3 (0-0.9); MONOCYTES % (AUTO) 6.4 % (2-12); NEUTROPHILS # (AUTO) 7.1 X10'3 (1.8-7.7); NEUTROPHILS % (AUTO) 65.4 % (42-75); PLATELET COUNT 377 X10'3 (140-440); RED BLOOD COUNT 4.68 X10'6 (4.20-5.60); RED CELL DISTRIBUTION WIDTH 14.1 % (11.5-14.5); WHITE BLOOD COUNT 10.8 X10'3 (4.5-11.0)
--- NOTE | 2022-07-08 06:25 | NUR ---
Problems reprioritized. Patient report given, questions answered & plan of care reviewed with PETR FIERRO.
[2022-07-08] MEDS: lamoTRIgine 100mg tablet PO SCH (07:57)
[2022-07-08] MEDS: ascorbic acid 500mg tablet PO SCH (07:59)
[2022-07-08] MEDS: triamterene/HCTZ 37.5/25mg tablet PO SCH (08:00)
[2022-07-08] MEDS: celeCOXIB 100mg capsule PO SCH (08:00)
[2022-07-08] MEDS: amLODIPine 5mg tablet PO SCH (08:03)
[2022-07-08] MEDS: magnesium oxide 400mg tablet PO SCH (08:04)
[2022-07-08] MEDS: multivitamins, therapeutics tablet PO SCH (08:04)
[2022-07-08] MEDS: gabapentin 300mg capsule PO SCH (08:05)
[2022-07-08] MEDS: aspirin 325mg tablet PO SCH (08:30)
[2022-07-08 10:00] VITALS: BP 144/56
--- NOTE | 2022-07-08 11:34 | NUR ---
PT DISCHARGED IN STABLE CONDITION TO HOME VIA MEDICAL PERSONNEL. PT INSTRUCTED ON POST OP CARE/FOLLOW UP. IV REMOVED TIP INTACT NO COMPLICATIONS. BELONGINGS SENT WITH PT
== END 2022-07-08 11:33 | disposition home or self-care (01) ==
LOC: PAS 05:45 → PAS IN 07:01 → UNDOADMIN 07:01 → EDSTATUS 07:30 → SUR 3N 12:20 → PAS IN 12:20 → SUR 3N 16:00 → PAS 07-08 11:33
PROVIDERS: ATTEND Orthopaedic Surgery
DX: M17.11 Unilateral primary osteoarthritis, right knee (principal); Z79.899 Other long term (current) drug therapy; M21.161 Varus deformity, not elsewhere classified, right knee; G89.18 Other acute postprocedural pain; Z98.890 Other specified postprocedural states; G47.30 Sleep apnea, unspecified; Z88.0 Allergy status to penicillin; Z88.8 Allergy status to other drugs, medicaments and biological substances; F43.10 Post-traumatic stress disorder, unspecified; Z90.710 Acquired absence of both cervix and uterus
CPT/HCPCS: 27447; 36415; 64447; 73560; 76942; 80051; 80053; 82948; 85025; 86885; 86900; 86901; 87081; 93971; 97110; 97116; 97161; 97530; A6258; C1713; C1776; J0131; J0171; J0690; J0735; J1100; J1170; J1200; J2175; J2250; J2270; J2405; J2704; J2765; J2795; J3010; J3370; J3480; J3490; J7030; J7040; J7120; Z7506; Z7508; Z7512; A4215; A4615; A7000; G0378; J1885

== ENCOUNTER 2022-08-16 11:39 | Emergency (ER) | payer MEDICARE, MEDICAID ==
[~2022-08-16] VITALS: Ht 170.2 cm; Wt 155.0 kg
[~2022-08-16 11:39] MED LIST changes: -famotidine 20mg tablet PO ONE; -ringers solution, lacted 1,000 ML IV SCH
[2022-08-16 12:48] VITALS: BP 186/107
--- NOTE | 2022-08-16 17:23 | NUR ---
Patient refused to go to fast track, wants to go back to lobby til a bed in the main ER is available.
== END 2022-08-16 20:13 | disposition left against medical advice (07) ==
LOC: ER 11:40
DX: M25.561 Pain in right knee (principal); Z53.21 Procedure and treatment not carried out due to patient leaving prior to being seen by health care provider
CPT/HCPCS: A6250

== ENCOUNTER 2023-04-23 11:40 | Emergency (ER) | payer MEDICARE, MEDICAID ==
[~2023-04-23] VITALS: Ht 170.2 cm; Wt 170.4 kg
[2023-04-23 11:49] VITALS: BP 193/118; PULSE 84; RESP 20; TEMP 98.6; O2SAT 95
[2023-04-23] MEDS ORDERED: IBUP-1986 PO (13:41)
== END 2023-04-23 13:47 | disposition home or self-care (01) ==
LOC: ER 11:40
DX: S93.401A Sprain of unspecified ligament of right ankle, initial encounter (principal); I10 Essential (primary) hypertension; Z88.8 Allergy status to other drugs, medicaments and biological substances; Z88.0 Allergy status to penicillin; Z91.018 Allergy to other foods; Z79.82 Long term (current) use of aspirin; Z79.1 Long term (current) use of non-steroidal anti-inflammatories (NSAID); Z79.899 Other long term (current) drug therapy; Z90.710 Acquired absence of both cervix and uterus; Z98.890 Other specified postprocedural states; X50.1XXA Overexertion from prolonged static or awkward postures, initial encounter; Y93.89 Activity, other specified; Y92.89 Other specified places as the place of occurrence of the external cause; Y99.8 Other external cause status
CPT/HCPCS: 29540; 73610; 99284; L1930

== ENCOUNTER 2023-12-11 08:27 | Emergency (ER) | payer MEDICARE, MEDICAID ==
[~2023-12-11] VITALS: Ht 170.2 cm; Wt 169.5 kg
[~2023-12-11 08:27] MED LIST changes: +ALBU8HFA INH; +CELE-193 PO; +DULO30CA52 PO; +EMPA25TA PO; +GABA-530 PO; +IBUP-1984 PO; +METF-900 PO
[2023-12-11 08:35] VITALS: BP 194/125; PULSE 109; RESP 16; TEMP 98.2; O2SAT 95
== END 2023-12-11 12:40 | disposition home or self-care (01) ==
LOC: ER 08:28
DX: S50.02XA Contusion of left elbow, initial encounter (principal); I10 Essential (primary) hypertension; Z88.8 Allergy status to other drugs, medicaments and biological substances; Z88.0 Allergy status to penicillin; Z91.018 Allergy to other foods; Z79.899 Other long term (current) drug therapy; Z79.2 Long term (current) use of antibiotics; Z79.1 Long term (current) use of non-steroidal anti-inflammatories (NSAID); Z90.710 Acquired absence of both cervix and uterus; W19.XXXA Unspecified fall, initial encounter; Y93.89 Activity, other specified; Y92.89 Other specified places as the place of occurrence of the external cause; Y99.8 Other external cause status
CPT/HCPCS: 73080; 99283; A4565

== ENCOUNTER 2024-03-01 06:42 | Day surgery (SDC) | payer MEDICARE, MEDICAID ==
[2024-03-01] VITALS (8 sets, daily range): BP systolic 134–174; BP diastolic 70–121; PULSE 74–89; RESP 16–19; TEMP 98.3; O2SAT 93–99
[~2024-03-01] VITALS: Ht 170.2 cm; Wt 181.8 kg
[2024-03-01] MEDS ORDERED: normal saline 1000ml 1,000 ML IV PRN (07:05)
[2024-03-01] MEDS ORDERED: LOSA1TAB39 PO (08:01)
== END 2024-03-01 10:10 | disposition home or self-care (01) ==
LOC: SSTAY O 06:42
PROVIDERS: ATTEND Radiology Diagnostic Radiology
DX: E04.2 Nontoxic multinodular goiter (principal)
CPT/HCPCS: 10005

== ENCOUNTER 2024-07-06 14:05 | Emergency (ER) | payer MEDICARE, MEDICAID ==
[~2024-07-06] VITALS: Ht 170.2 cm; Wt 179.0 kg
[~2024-07-06 14:05] MED LIST changes: -CELE-193 PO; -DULO30CA52 PO; -EMPA25TA PO; -GABA-530 PO; -IBUP-1984 PO; +LOSA1TAB39 PO; -METF-900 PO; -TRIA1TAB5 PO
[2024-07-06 14:12] VITALS: BP 187/109; PULSE 100; RESP 16; O2SAT 96
[2024-07-06 15:05] LABS: BILIRUBIN,URINE NEGATIVE (Neg); CLARITY,URINE CLOUDY (Clear); COLOR,URINE YELLOW (Yellow); GLUCOSE, URINE NEGATIVE (Neg); KETONES,URINE NEGATIVE (Neg); LEUKOCYTE ESTERASE ,URINE MODERATE (Neg); NITRITES, URINE NEGATIVE (Neg); OCCULT BLOOD,URINE TRACE-INTACT (Neg); PROTEIN,URINE TRACE mg/dl (Neg); UROBILINOGEN,URINE 0.2 E.U/dL (0.2-1.0)
[2024-07-06 15:11] LABS: UA COLLECTION TYPE CLN CATCH MIDSTREAM
[2024-07-06 15:14] LABS: BACTERIA,URINE 3+ /HPF (Neg); MUCUS STRANDS NONE SEEN /LPF (Neg); SQUAMOUS EPITHELIAL CELL,UR FEW /LPF (FEW); WBC,URINE TNTC /HPF (0-4)
[2024-07-06 15:30] LABS: URINE HCG NEGATIVE (NEG)
[2024-07-06] MEDS ORDERED: CIPR-113 PO (17:08)
[2024-07-06] MEDS ORDERED: PHEN-786 PO (17:08)
[2024-07-06] MEDS: phenazopyridine 100mg tablet PO STA (17:39)
[2024-07-06] MEDS: CefTRIAXone 1000mg IM Kit (w/lidocaine diluent) IM ONE (17:39)
[2024-07-06 17:52] VITALS: TEMP 98.4
== END 2024-07-06 17:53 | disposition home or self-care (01) ==
LOC: ER 14:06
DX: N39.0 Urinary tract infection, site not specified (principal); N10 Acute pyelonephritis; I25.10 Atherosclerotic heart disease of native coronary artery without angina pectoris; I10 Essential (primary) hypertension; I25.2 Old myocardial infarction; I48.91 Unspecified atrial fibrillation; G89.29 Other chronic pain; Z88.0 Allergy status to penicillin; Z88.8 Allergy status to other drugs, medicaments and biological substances; Z90.710 Acquired absence of both cervix and uterus; Z86.73 Personal history of transient ischemic attack (TIA), and cerebral infarction without residual deficits; Z85.41 Personal history of malignant neoplasm of cervix uteri
CPT/HCPCS: 81001; 81025; 87088; 87186; 96372; 99283; J0696; 87077

== ENCOUNTER 2025-01-23 10:30 | Outpatient (CLI) | payer MEDICARE, MEDICAID ==
[~2025-01-23 10:30] MED LIST changes: +PHEN-786 PO
--- NOTE | 2025-01-23 14:53 | RADIOLOGY REPORT ---
Procedure: US ULTRASOUND PELVIS W/ORWO DPLX 01/23/2025 10:52 AM Indication: PELVIC AND PERINEAL PAIN Comparison: None Technique: Real-time grayscale and color images were obtained. FINDINGS: UTERUS: Surgically absent. No residual/ recurrent disease noted. OVARIES: Not identified. No adnexal lesion is seen. CUL-DE-SAC: No significant fluid noted. OTHER: No pelvic sidewall lymphadenopathy. No abnormal lymph node along the iliac vessels. IMPRESSION: 1. No sonographic evidence for an acute intrapelvic process. No pelvic lymphadenopathy is identified.
== END 2025-01-23 23:59 | disposition home or self-care (01) ==
LOC: RAD 10:30
PROVIDERS: ATTEND Physician Assistant Medical
DX: R10.2 Pelvic and perineal pain (principal)
CPT/HCPCS: 76830; 76856

== ENCOUNTER 2025-02-13 07:52 | Day surgery (SDC) | payer MEDICARE, MEDICAID ==
[~2025-02-13] VITALS: Ht 170.2 cm; Wt 187.0 kg
[~2025-02-13 07:52] MED LIST changes: -ASPI-147 PO; -CALC-336 PO; +HCTZ PO; +IBUP-1984 PO; -LOSA1TAB39 PO; +LOSARTAN PO; -MAGN400C PO; -NAPR220T67 PO; -PHEN-786 PO
[2025-02-13 08:47] VITALS: BP 168/107; PULSE 92; RESP 23
[2025-02-13] MEDS ORDERED: fentaNYL/PF 50MCG/1 ML 2ML syringe ONE (09:36)
[2025-02-13] MEDS ORDERED: midazolam 1 mg/ML 2ml injection ONE ×2 (09:36→09:41)
[2025-02-13] MEDS ORDERED: propofol inj 20 ML IV ONE (09:43)
[2025-02-13 10:07] VITALS: BP 124/75; PULSE 91; RESP 21; O2SAT 97
[2025-02-13 10:10] VITALS: BP 137/82; PULSE 90; RESP 19; O2SAT 99
[2025-02-13 10:20] VITALS: BP 149/76; PULSE 88; RESP 17; O2SAT 99
[2025-02-13 10:30] VITALS: BP 150/87; PULSE 92; RESP 17; O2SAT 99
[2025-02-13 10:40] VITALS: BP 146/99; PULSE 97; RESP 17; O2SAT 99
== END 2025-02-13 10:50 | disposition home or self-care (01) ==
LOC: GI LAB 07:52
PROVIDERS: ATTEND Internal Medicine Gastroenterology
DX: R19.5 Other fecal abnormalities (principal); K62.1 Rectal polyp; K57.30 Diverticulosis of large intestine without perforation or abscess without bleeding; I10 Essential (primary) hypertension; E66.01 Morbid (severe) obesity due to excess calories; J45.909 Unspecified asthma, uncomplicated; Z68.44 Body mass index [BMI] 60.0-69.9, adult; Z88.0 Allergy status to penicillin
CPT/HCPCS: 45385; A4620; C1889; J2250; J2704; J3010; J7030; Z7512